=== PATIENT | female | born 1945 | race African-American/Black ===

== ENCOUNTER 2016-11-16 17:07 | Emergency (ER) | payer OTHER ==
[~2016-11-16] VITALS: Ht 157.5 cm; Wt 82.0 kg
[2016-11-16] MEDS: ACETAMINOPHEN 500MG TABLET PO ONE (19:20)
[2016-11-16 21:01] LABS: BASOPHILS % 0.2 % (0.0-2.0); EOSINOPHILS % 0.3 % (0.0-5.0); HEMATOCRIT. 36.9 % (36.0-48.0); MEAN CORPUSCULAR HEMOGLOBIN 32.2 pg (28.0-32.0); MEAN CORPUSCULAR VOLUME 98.9 fL (81.0-99.0); MEAN PLATELET VOLUME 9.8 fl (7.4-10.4); NEUTROPHILS % 84.5 % (40.0-76.0); PLATELET 108 x1000/uL (130-400); RED BLOOD CELL COUNT 3.74 mill/uL (4.2-5.4); RED CELL DISTRIBUTION WIDTH 16.1 % (11.6-14.6)
[2016-11-16] MEDS: TRAMADOL 50MG TABLET PO ONE (22:10)
[2016-11-16 23:09] VITALS: BP 127/70
== END 2016-11-16 23:39 | disposition short-term general hospital (02) ==
LOC: ER 17:37
DX: S52.502A Unspecified fracture of the lower end of left radius, initial encounter for closed fracture (principal); S92.002A Unspecified fracture of left calcaneus, initial encounter for closed fracture; I10 Essential (primary) hypertension; E78.00 Pure hypercholesterolemia, unspecified; M10.9 Gout, unspecified; M25.532 Pain in left wrist; Z99.2 Dependence on renal dialysis; V43.52XA Car driver injured in collision with other type car in traffic accident, initial encounter; Y93.89 Activity, other specified; Y92.89 Other specified places as the place of occurrence of the external cause; Y99.8 Other external cause status
CPT/HCPCS: 29515; 36415; 71010; 73110; 73130; 73610; 80048; 85025; 93005; 99285

== ENCOUNTER 2017-06-20 09:36 | Inpatient (IN) | payer OTHER ==
[~2017-06-20] VITALS: Ht 157.5 cm; Wt 68.0 kg
[2017-06-20] MEDS ORDERED: LABETALOL HCL 20MG/4ML CARPUJECT IV ONE (10:30)
[2017-06-20 11:40] LABS: BASOPHILS % 0.2 % (0.0-2.0); EOSINOPHILS % 1.6 % (0.0-5.0); HEMATOCRIT. 35.7 % (36.0-48.0); HEMOGLOBIN. 10.8 g/dL (12.0-16.0); LYMPHOCYTES % 18.4 % (20.0-50.0); MEAN PLATELET VOLUME 9.3 fl (7.4-10.4); MONOCYTES % 11.3 % (2.0-8.0); NEUTROPHILS % 68.5 % (40.0-76.0); PLATELET 133 x1000/uL (130-400); RED BLOOD CELL COUNT 4.31 mill/uL (4.2-5.4); RED CELL DISTRIBUTION WIDTH 21.3 % (11.6-14.6)
[2017-06-20 11:47] LABS: INR 1.2; PROTHROMBIN TIME 12.7 sec (9.4-11.6)
[2017-06-20 11:54] LABS: CHLORIDE 104 mEq/L (98-107)
[2017-06-20] MEDS ORDERED: ASPIRIN 325MG TABLET PO ONE (12:45)
[2017-06-20] MEDS ORDERED: DIPHENHYDRAMINE 50MG/ML VIAL IV PRN (13:45)
[2017-06-20] MEDS ORDERED: MORPHINE SULFATE 2 MG/ML CPJ (NOT FOR IM USE) IV PRN (13:45)
[2017-06-20] MEDS ORDERED: CLONIDINE 0.1MG TABLET PO PRN (13:45)
[2017-06-20] MEDS ORDERED: MAGNESIUM/ALUMINUM HYDROXIDE/SIMETHICONE 30ML UDC PO PRN (13:45)
[2017-06-20] MEDS ORDERED: TRAMADOL 50MG TABLET PO PRN (13:45)
[2017-06-20] MEDS ORDERED: ZOLPIDEM TARTRATE 5MG TABLET PO PRN (13:45)
[2017-06-20] MEDS ORDERED: DOCUSATE SODIUM 100MG CAPSULE PO PRN (13:45)
[2017-06-20] MEDS ORDERED: GUAIFENESIN 200MG/10ML SUGAR FREE UDC PO PRN (13:45)
[2017-06-20] MEDS ORDERED: LORAZEPAM 0.5MG TABLET PO PRN (13:45)
[2017-06-20] MEDS ORDERED: ENOXAPARIN 40MG/0.4ML SYR SUBCUT SCH (13:45)
[2017-06-20] MEDS ORDERED: ACETAMINOPHEN 325MG TABLET PO PRN (13:45)
[2017-06-20] MEDS ORDERED: ONDANSETRON HCL 4MG/2ML VIAL IV PRN (13:45)
[2017-06-20] MEDS ORDERED: IPRATROPIUM/ALBUTEROL 0.5-3(2.5)MG/3ML NEB INH PRN (13:45)
[2017-06-20] MEDS ORDERED: NA PHOS,M-B/NA PHOS,DI-BA ENEMA 118ML PR PRN (13:45)
[2017-06-20 16:46] VITALS: BP 125/70
[2017-06-20 16:57] VITALS: BP 125/70
[2017-06-20] MEDS ORDERED: ATENOLOL 25MG TABLET PO SCH (17:00)
[2017-06-20] MEDS ORDERED: ENOXAPARIN 30MG/0.3ML SYR SUBCUT NR (17:00)
[2017-06-20] MEDS: DILTIAZEM HCL 60MG TABLET PO SCH ×2 (17:22→23:44)
[2017-06-20] MEDS: AMLODIPINE 10MG TABLET PO SCH (17:23)
[2017-06-20 20:00] VITALS: BP 115/57
[2017-06-20] MEDS: FAMOTIDINE 20MG/2ML VIAL IV SCH (20:50)
[2017-06-20] MEDS ORDERED: ENOXAPARIN 60MG/0.6ML SYR SUBCUT SCH (21:00)
[2017-06-21 00:01] VITALS: BP 121/63
[2017-06-21 03:33] LABS: CREATINE KINASE 21 IU/L (26-192); CREATINE KINASE MB FRACTION 1.7 ng/mL (0.5-3.6)
[2017-06-21 04:00] VITALS: BP 115/65
[2017-06-21] MEDS: DILTIAZEM HCL 60MG TABLET PO SCH ×3 (05:45→17:55)
[2017-06-21 08:00] VITALS: BP 109/56
[2017-06-21] MEDS ORDERED: ASPIRIN 325MG EC TABLET PO SCH (09:00)
[2017-06-21] MEDS: ATENOLOL 50 MG TABLET PO SCH ×2 (09:00→17:00)
[2017-06-21] MEDS: AMLODIPINE 10MG TABLET PO SCH (09:00)
[2017-06-21] MEDS: FAMOTIDINE 20MG/2ML VIAL IV SCH (09:25)
[2017-06-21 12:00] VITALS: BP 133/58
[2017-06-21 16:00] VITALS: BP 112/59
[2017-06-21] MEDS ORDERED: ENOXAPARIN 80MG/0.8ML SYR SUBCUT SCH (17:00)
[2017-06-21 18:21] VITALS: BP 110/60
[2017-06-22] MEDS ORDERED: FAMOTIDINE 20MG/2ML VIAL IV SCH (09:00)
== END 2017-06-21 18:50 | disposition short-term general hospital (02) | DRG 308 ==
LOC: ER 09:55 → 7WST 13:25 → EDBEDREQ 13:29 → ENRESERV 14:00
PROVIDERS: ADMIT Internal Medicine; ATTEND Internal Medicine
DX: I48.0 Paroxysmal atrial fibrillation (principal); N18.6 End stage renal disease; E44.0 Moderate protein-calorie malnutrition; I13.11 Hypertensive heart and chronic kidney disease without heart failure, with stage 5 chronic kidney disease, or end stage renal disease; D63.8 Anemia in other chronic diseases classified elsewhere; E78.00 Pure hypercholesterolemia, unspecified; Z99.2 Dependence on renal dialysis; Z88.5 Allergy status to narcotic agent; Z68.27 Body mass index [BMI] 27.0-27.9, adult
CPT/HCPCS: 36415; 71045; 80053; 80061; 82550; 82553; 83036; 83605; 83735; 83880; 84443; 84484; 85025; 85610; 86850; 86900; 93005; 93306; 93970; 99285; J1650; J3490